=== PATIENT | female | born 1955 | race Caucasian/White ===

== ENCOUNTER 2018-02-02 01:47 | Day surgery (SDC) | payer OTHER ==
[2016-02-24 13:02] VITALS: Ht 162.6 cm; Wt 103.4 kg
[~2018-02-02] VITALS: Ht 162.6 cm; Wt 103.4 kg
[~2018-02-02 01:47] MED LIST: ACET500T68 PO; ASPI-1471 PO; ESOM40CA42 PO; GOLYTE PO; MULT-19 PO; OMEP-218 PO; RIVA10TA PO; WARF5TAB23 PO; [UNRECOGNIZED DRUG - CODE] PO
[2018-02-02] MEDS ORDERED: PROPOFOL EMUL(*) 10MG/ML 20 ML 20 ML ONE (07:25)
[2018-02-02 08:25] VITALS: BP 154/65
[2018-02-02] MEDS ORDERED: NORMOSOL R SOLN(*) 1000 ML BAG 1,000 ML IV PRN (08:30)
[2018-02-02] MEDS ORDERED: LIDOCAINE/SOD BICARB 8.4% SYR ID ONE (08:30)
[2018-02-02 09:37] LABS: INR 1.22
[2018-02-02 10:08] VITALS: BP 89/47
[2018-02-02 10:16] VITALS: BP 82/41
[2018-02-02 10:25] VITALS: BP 121/83
[2018-02-02 10:28] VITALS: BP 111/70
== END 2018-02-02 10:38 | disposition home or self-care (01) ==
LOC: OR 01:47
PROVIDERS: ATTEND Family Medicine
DX: Z12.11 Encounter for screening for malignant neoplasm of colon (principal); Z86.010 Personal history of colon polyps; Z86.718 Personal history of other venous thrombosis and embolism; Z79.01 Long term (current) use of anticoagulants
CPT/HCPCS: 00812; 45378; 85610; J2704

== ENCOUNTER → 2018-10-02 | Outpatient (CLI) | payer OTHER ==
[2016-02-24 13:02] VITALS: BMI 38.8
--- NOTE | 2018-10-03 08:22 | RADIOLOGY IMAGING REPORT ---
FACILITY: [facility] - [place] PATIENT NAME: BROOK LAYNE : [id number] MR: [id number] V: [id number] EXAM DATE: ORDERING PHYSICIAN: SHANIA MENG TECHNOLOGIST: Amy Serrato PROCEDURE:BILATERAL DIGITAL SCREENING MAMMOGRAM WITH CAD ASSISTED INTERPRETATION & 3D TOMOSYNTHESIS COMPARISON:Prior mammograms 10/13/16, 09/04/14, 10/17/13, 09/25/12. INDICATIONS:screening FINDINGS: There are scattered areas of fibroglandular density throughout the breasts. The parenchymal pattern has remained stable allowing for difference in mammographic technique & patient positioning. DIAGNOSTIC CATEGORY 1--NEGATIVE. RECOMMENDATIONS: ROUTINE MAMMOGRAM AND CLINICAL EVALUATION. IMPRESSION: BIRADS 1: Negative. No significant abnormality is seen. Dictated by: Mouna Alfaro M.D. on 10/02/2018 at 17:21 Transcribed by: TRAMAINE on 10/03/2018 at 8:19 Approved by: Mouna Alfaro M.D. on 10/03/2018 at 8:20 [facility]
== END ==
LOC: MAMO 01:37
PROVIDERS: ATTEND Obstetrics & Gynecology
DX: Z12.31 Encounter for screening mammogram for malignant neoplasm of breast (principal)
CPT/HCPCS: 77063; 77067